=== PATIENT | male | born 1960 | race Asian ===

== ENCOUNTER 2017-08-16 07:58 | Day surgery (SDC) | payer MEDICAID ==
[~2017-08-16] VITALS: Ht 167.6 cm; Wt 46.3 kg
[2017-08-16] MEDS ORDERED: SIMETHICONE 40 MG/0.6 ML ML ONE (08:09)
[2017-08-16] MEDS ORDERED: MIDAZOLAM HCL 5 MG/5 ML VIAL ONE (08:09)
[2017-08-16] MEDS ORDERED: BENZOCAINE 20% 0.5mL UD SPRAY MM ONE (09:15)
[2017-08-16] MEDS: fentaNYL CITRATE/PF 100 MCG/2 ML AMP ONE ×3 (09:42→09:47)
[2017-08-16] MEDS: MIDAZOLAM HCL 5 MG/5 ML VIAL ONE ×4 (09:42→09:57)
[2017-08-16] MEDS ORDERED: fentaNYL CITRATE/PF 100 MCG/2 ML AMP ONE (10:11)
[2017-08-16] MEDS ORDERED: DIPHENHYDRAMINE INJ 50 MG/ML VIAL ONE (10:45)
[2017-08-16 15:05] VITALS: BP_SYST 135
== END 2017-08-16 11:05 | disposition home or self-care (01) ==
LOC: SGI 07:58 → SMU 07:59 → SGI 11:05
PROVIDERS: ATTEND Internal Medicine
DX: D12.4 Benign neoplasm of descending colon (principal); D12.5 Benign neoplasm of sigmoid colon; D12.8 Benign neoplasm of rectum; K29.50 Unspecified chronic gastritis without bleeding; K57.30 Diverticulosis of large intestine without perforation or abscess without bleeding; K64.8 Other hemorrhoids; K31.89 Other diseases of stomach and duodenum; F17.200 Nicotine dependence, unspecified, uncomplicated
CPT/HCPCS: 36415; 43239; 45380; 45385; 87081; 88305; 88312; 88313; J1200; J2250; J3010